=== PATIENT | male | born 1995 | race Caucasian/White ===

== ENCOUNTER 2016-06-08 12:59 | Day surgery (SDC) | payer OTHER ==
[~2016-06-08 12:59] MED LIST: CEFAZOLIN 2 GM/D5W RTU 2 GM/50 ML RTUPB IV PRN; LIDOCAINE 2% INJ-PF (20 MG/ML) 10 ML AMPUL ONE; METOCLOPRAMIDE HCL INJ/PF 10 MG/2 ML SDV ONE; ONDANSETRON HCL INJ/PF 4 MG/2 ML SDV ONE
[2016-06-08] MEDS ORDERED: HYDROMORPHONE HCL INJ/PF 2 MG/ML AMPULE ONE ×2 (14:36→14:46)
[2016-06-08] MEDS ORDERED: FENTANYL CITRATE INJ/PF 100 MCG/2 ML AMPUL ONE (14:46)
[2016-06-08] MEDS ORDERED: MIDAZOLAM 2 MG/2 ML INJ ONE (14:46)
[2016-06-08] MEDS ORDERED: EPHEDRINE SULFATE INJ 50 MG/1 ML AMPULE ONE (14:46)
[2016-06-08] MEDS ORDERED: PROPOFOL INJ 200 MG/20 ML VIAL IV ONE (14:47)
[2016-06-08] MEDS ORDERED: ACETAMINOPHEN 100 ML IV ONE (14:47)
[2016-06-08] MEDS ORDERED: FENTANYL CITRATE INJ/PF 100 MCG/2 ML AMPUL IV PRN ×3 (15:30)
[2016-06-08] MEDS ORDERED: PROMETHAZINE HCL INJ 25 MG/1 ML VIAL IV PRN (15:30)
[2016-06-08] MEDS ORDERED: MEPERIDINE HCL/PF INJ 25 MG/1 ML DISP.SYRIN IV PRN (15:30)
[2016-06-08] MEDS ORDERED: DIPHENHYDRAMINE HCL 50 MG/ML VIAL IV PRN (15:30)
--- NOTE | 2016-06-08 17:31 | Operative Report ---
Operative Report DATE OF SURGERY: 06/08/16 PREOPERATIVE DIAGNOSIS: Right bimalleolar ankle fracture POSTOPERATIVE DIAGNOSIS: Same OPERATION: ORIF of right bimalleolar ankle fracture SURGEON: TA LUJAN ANESTHESIA: GA TISSUE REMOVED OR ALTERED: None COMPLICATIONS: None ESTIMATED BLOOD LOSS: 10 mL INTRAOPERATIVE FINDINGS: As above PROCEDURE: Patient received 2 g of Ancef in the preoperative holding area. Patient was now taken to the operating room and induced and intubated in supine position. Once the tube was secured a thigh tourniquet was applied to right extremity. Extremity was prepped and draped in a normal surgical fashion. Timeout was done identifying the right as the correct site. Esmarch was used to exsanguinate the extremity and the tourniquet was inflated to 300 mmHg. A standard lateral incision was done straight over the distal fibula. Check position was taken down to the bone and then periosteal elevator was used to expose the fracture site and elevate the periosteum at the fracture site. Both fragments were visualized and I Michhmann was used to retract the tissue. I was able to then reduce the fracture with reduction clamps. C-arm pictures were taken to confirm our reduction. I then applied the appropriate plate and make sure was in a proper alignment and with C-arm. Once I was satisfied with the proximal distal situation and the AP lateral position of the plate I proceeded then to use the drill guide and drill to drill the proximal hole in the plate in the distal fragment. I measured and placed a proper length screw. I repeated this with the distal hole in the plate to secure the proximal fragment. Reduction clamp was removed and the fracture stayed reduced. AP and lateral x-rays confirm there is no change in alignment. I then proceeded to fill in the remaining holes I drilling and using C-arm and measuring guide to applied appropriate screws. Once I was satisfied with my lateral fixation I then turned my attention to the medial malleolus. A curvilinear incision was done over the medial aspect of the ankle using a 15 blade. Dissection was done with a Metzenbaum scissor. Branches of the small saphenous vein was visualized and retracted. Fracture site was exposed with hematoma. Between 15 blade and periosteal elevator was able to expose the 2 fracture ends. I used a pointed reduction clamp to do my reduction of the medial malleolus. C-arm confirmed proper reduction and therefore I used [address] him in the distal fragment capturing the proximal aspect of the tibia. AP and lateral C- arm pictures were taken confirming placement and reduction again. I then proceeded to use self drilling self-tapping screws after measuring appropriate length for both of them. C-arm pictures were taken to confirm placement of the screws. I was satisfied with my reduction and fixation of the medial malleolus I then proceeded to close the wound medially with 2-0 Vicryl to and 4-0 Monocryl for subcuticular closure At this point I proceeded to close my lateral wound with 0 Vicryl and 3-0 Vicryl and 4-0 Monocryl skin. Tourniquet was let down and the dressing was applied. Xeroform 4 x 4 sterile dressing followed by Sof-Rol was applied. A posterior Ortho-Glass splint with a Ortho-Glass stirrup splint was applied and overwrapped with an Avery bandage. I held the foot in neutral and waiting until the splint hardened. At this point drapes were removed and patient was extubated and sent to PACU in stable condition.
[2016-06-08] MEDS: FENTANYL CITRATE INJ/PF 100 MCG/2 ML AMPUL ONE ×2 (17:32→17:39)
--- NOTE | 2016-06-08 17:38 | PDOC DISCHARGE SUMMARY ---
Discharge Summary (SDC) - Discharge Final Diagnosis: Right ankle fracture status post ORIF Date of Surgery: 06/08/16 Discharge Date: 06/08/16 Condition: Good Treatment or Instructions: Instructed to keep the splint and dressing dry clean and intact until follow-up Instructed to be nonweightbearing right lower extremity. Instructed to keep it iced and elevated. Prescriptions: Ondansetron HCl [Zofran 4 mg Tablet] 1 tab PO Q6HP PRN #30 tablet PRN Reason: Oxycodone HCl/Acetaminophen [Percocet 7.5-325 Mg Tablet] 1 - 2 each PO Q6HP PRN #60 tablet PRN Reason: Discharge Diet: As Tolerated Respiratory Treatments at Home: Deep Breathing/Coughing Discharge Activity: No Driving, Keep Legs Elevated, No Lifting/Push/Pulling Home Care Assistance: None Needed Adaptive Devices on Discharge: Axillary Crutches Report the Following to Your Physician Immediately: Shortness of Breath, Vomiting, Fever over 101 Degrees, Unusual Bleeding, Redness, Swelling, Warmth, Drainage-Yellow, Drainage-Green, Drainage-Foul Smelling
[2016-06-08] MEDS ORDERED: OXYCODONE-ACETAMINOPHEN 5-325 MG TABLET PO PRN (18:07)
[2016-06-08] MEDS ORDERED: OXYCODONE-ACETAMINOPHEN 5-325 MG TABLET ONE (18:21)
[2016-06-08 19:18] VITALS: BP 160/94
== END 2016-06-08 19:15 | disposition home or self-care (01) ==
LOC: OROUT 12:59
PROVIDERS: ATTEND Orthopaedic Surgery
PROC: 0QSG04Z Reposition Right Tibia with Internal Fixation Device, Open Approach (ICD-10-PCS; 2016-06-08)
PROC: 0QSJ04Z Reposition Right Fibula with Internal Fixation Device, Open Approach (ICD-10-PCS; principal; 2016-06-08 15:00)
DX: S82.841A Displaced bimalleolar fracture of right lower leg, initial encounter for closed fracture (principal); X58.XXXA Exposure to other specified factors, initial encounter; Y93.89 Activity, other specified; F17.210 Nicotine dependence, cigarettes, uncomplicated
CPT/HCPCS: 73600; 27814; C1713 ×5; C1769; J2250; J3490 ×2; J3010; J2765; J1170; J2405; J2704; J0690; J0131; 01480